=== PATIENT | male | born 1960 | race Caucasian/White ===

== ENCOUNTER → 2017-04-08 | Outpatient (CLI) | payer BC ==
[~2017-04-08] MED LIST: CELEXA; TOPROL XL
--- NOTE | 2017-04-08 19:24 | DIAGNOSTIC IMAGING REPORT ---
SINGLE VIEW PELVIS CLINICAL HISTORY: Sacroiliac pain. FINDINGS: An AP pelvic radiograph is obtained. No prior studies are available for comparison at the time of dictation. The skeletal structures are well mineralized. No fracture is seen. The joint spaces of the hips are preserved. Minimal degenerative sclerosis is noted involving the sacroiliac joints. Mild lumbosacral spondylosis is partially imaged. Pelvic phleboliths are observed. The overlying soft tissues are within normal limits. A surgical clip is partially imaged projecting over the right hemiscrotum. IMPRESSION: Mild degenerative change as above. No acute bony abnormality is seen. Electronically signed by: Maged Lee M.D. 04/08/2017 7:23 PM Dictated Date/Time: 04/08/2017 7:22 PM
== END | disposition home or self-care (01) ==
LOC: C.RAD 19:03
PROVIDERS: ATTEND Family Medicine
DX: M53.3 Sacrococcygeal disorders, not elsewhere classified (principal)

== ENCOUNTER → 2017-08-01 | Day surgery (SDC) | payer BC ==
[~2017-08-01] VITALS: Ht 188 cm; Wt 90.9 kg
[~2017-08-01] MED LIST changes: +BUPIVACAINE 0.25% 2.5MG/ML PF 10 ML VIAL ONE; +CHOL1000 PO; +CLON0.5T3 PO; +IBUP-103 PO; +IOPAMIDOL INJ 61% 15 ML VIAL ONE; +LIDOCAINE HCL 1% MPF 5 ML VIAL ONE; +NADO20TA PO; +RIZA5TAB10 PO; +SERT25TA PO
[2017-08-01 13:12] VITALS: Ht 188 cm; Wt 90.9 kg
--- NOTE | 2017-08-01 13:34 | History & Physical Bridge - [place] ---
H&P Re-Evaluation Bridge Note: I have examined the patient, reviewed the History & Physical and in the interval since the performance of the History & Physical I have noted the following changes of clinical significance: No changes noted
[2017-08-01 14:03] VITALS: TEMP 36.6
--- NOTE | 2017-08-01 14:09 | Discharge Instructions ---
Discharge Instructions Date of Service Aug 01, 2017. Visit Reason for Visit: Sacroiliitis Discharge Discharge Diagnosis / Problem: low back pain Discharge Goals Goal(s): Decrease discomfort, Improve function Activity Recommendations Activity Limitations: resume your previous activity Anesthesia . Post Anesthesia Instructions: If you have had General Anesthesia or IV Sedation: * Do not drive today. * Resume driving when surgeon permits. * Do not make important decisions or sign legal documents today. * Call surgeon for: 1. Temperature elevations greater than 101 degrees F. 2. Uncontrollable pain. 3. Excessive bleeding. 4. Persistent nausea and vomiting. 5. Medication intolerance (nausea, vomiting or rash). * For nausea and vomiting use only clear liquids such as: tea, soda, bouillon until nausea subsides, then gradually increase diet as tolerated. * If you have any concerns or questions, call your surgeon's office. If physician is unavailable and it is an emergency, call 911 or go to the nearest emergency room. . Diet Recommendations Recommended Home Diet: resume previous diet Procedures Procedures Performed: BILATERAL SACRILIAC JOINT INJECTION Pending Studies Studies pending at discharge: no Medical Emergencies . Who to Call and When: Medical Emergencies: If at any time you feel your situation is an emergency, please call 911 immediately. . Non-Emergent Contact Non-Emergency issues call your: Specialist . . "Provider Documentation" section prepared by Car Bassett. .
[2017-08-01 14:18] VITALS: BP 113/65; PULSE 60; O2SAT 96
--- NOTE | 2017-08-01 14:33 | OPERATIVE REPORT ---
DATE OF OPERATION: 08/01/2017 PREOPERATIVE DIAGNOSIS: Bilateral sacroiliitis. POSTOPERATIVE DIAGNOSIS: Same. PROCEDURE: Bilateral sacroiliac joint injections under fluoroscopic guidance. INDICATIONS: The patient is a 57-year-old white male who has not responded to conservative measures for sacroiliitis, which was shown on x-rays. He presents today for SI joint injections to provide him with some symptomatic relief of his ongoing symptoms. PHYSICAL EXAMINATION: Pleasant male seated comfortably. He has tenderness to palpation bilaterally of his SI joints. He has a positive Yossi maneuver on the right, negative sacral distraction maneuver and essentially positive sacral compression maneuver. CONSENT: Verbal and written consent was obtained from the patient. Risks and benefits were reviewed. Risks include, but are not limited to abscess and allergic reaction. The patient wishes to proceed. DESCRIPTION OF PROCEDURE: The patient was taken back to the special procedures room of [facility], where he was maintained in a prone position. Backside was cleansed with Betadine x3 and a dry sterile dressing was applied. Fluoroscope was used to identify the left SI joint. The overlying skin was anesthetized with 2.5 mL of lidocaine 1% with a 25-gauge 1-1/2 inch needle and then a 25-gauge 3-1/2 inch spinal needle was then placed into the joint under fluoroscopic guidance. Isovue-300 contrast 0.25 of a mL was injected in which demonstrated intraarticular uptake. He then underwent injection after negative aspiration of 40 mg of Depo-Medrol and 1.5 mL of bupivacaine 0.25%. Injection was tolerated well initially and the patient began having a vagal reaction shortly thereafter. The procedure on the right side was held up until he was feeling better. Once he was feeling like symptoms had remitted, the right sided overlying skin was then anesthetized with 2.5 mL of lidocaine 1% with a 25-gauge 1-1/2 inch needle. A 25-gauge 3-1/2 inch spinal needle was then quickly directed into the joint under fluoroscopic guidance and then injected with 40 mg of Depo-Medrol and 1.5 mL of bupivacaine 0.25%. No issues following this injection. DISPOSITION: 1. He was taken out into the discharge recovery area, where he will be discharged home once discharge criteria have been met. 2. Follow up in the [facility] office in 2-4 weeks. I attest to the content of the Intraoperative Record and any orders documented therein. Any exception s are noted below.
== END | disposition home or self-care (01) ==
LOC: X.SURG 13:02
PROVIDERS: ATTEND Physical Medicine & Rehabilitation
DX: M46.1 Sacroiliitis, not elsewhere classified (principal)